=== PATIENT | male | born 1990 | race Caucasian/White ===

== ENCOUNTER 2023-01-11 11:49 | Outpatient (REF) | payer MEDICAID, OTHER, SELFPAY ==
[2023-01-11 13:26] LABS: MANUAL DIFF FLAG NO
[2023-01-11 13:52] LABS: Basophils Absolute Auto 0.1 X10*3/uL (0.0-0.2); Basophils Percent Auto 1.4 % (0-2); Eosinophils Absolute Auto 0.1 X10*3/uL (0.0-0.4); Eosinophils Percent Auto 1.4 % (0-4); Hemoglobin 16.2 g/dl (14.0-18.0); Imm Gran Abs Auto 0.04 X10*3/uL (0.00-0.03); Imm Gran Pct Auto 0.8 % (0.0-0.4); Lymphocytes Absolute Auto 1.5 X10*3/uL (1.2-4.9); Lymphocytes Percent Auto 29.7 % (20-40); Mean Corpuscular HGB Conc 35.2 g/dl (31.0-36.0); Mean Corpuscular Hemoglobin 29.6 pg (27.0-33.0); Mean Corpuscular Volume 84.1 fL (80.0-98.0); Mean Platelet Volume 12.1 fL (9.4-12.4); Monocytes Absolute Auto 0.3 X10*3/uL (0.1-1.2); Monocytes Percent Auto 6.6 % (2-11); Neutrophils Percent Auto 60.1 % (45-73); Platelet Count 217 X10*3/uL (160-400); Red Blood Count 5.47 X10*6/uL (4.60-5.80); Red Cell Distribution Width 12.8 % (11.0-16.0)
[2023-01-11 14:07] LABS: Hemoglobin A1c % > 14.0 %
[2023-01-11 14:32] LABS: Alanine Aminotransferase 10 U/L (0-40); Albumin Level 4.4 g/dL (3.5-5.0); Alkaline Phosphatase 125 U/L (39-117); Anion Gap 25 (12-20); Aspartate Amino Transferase 10 U/L (5-37); Bilirubin Total 0.9 mg/dL (0.0-1.0); Blood Urea Nitrogen 11 mg/dL (9-16); Calcium 9.4 mg/dL (8.4-10.2); Carbon Dioxide 20 mmol/L (22-29); Chloride 95 mmol/L (96-108); Cholesterol 240 mg/dL; Estimated Glomerular Filt Rate > 60; Glucose Random 294 mg/dL (60-115); HDL Cholesterol 45 mg/dL; LDL Cholesterol Calculated 168 mg/dl; Potassium 4.5 mmol/L (3.3-5.1); Sodium 135 mmol/L (135-145); Total Protein 7.2 g/dL (6.5-8.0); Triglycerides 135 mg/dL
[2023-01-11 15:01] LABS: TSH reflex Free T4 1.13 uIU/mL (0.32-4.0); Vitamin D 25-OH Total 18.5 ng/mL (>30)
[2023-01-11 15:03] LABS: Folate 16.3 ng/mL (> or = 4.0); Vitamin B12 826 pg/mL (200-900)
[2023-01-11 16:38] LABS: Creatinine Urine 68.56 mg/dL; Microalbum/Creatinine Ratio Ur 23.3 ug/mg cr
[2023-01-11 17:45] LABS: CT PCR NOT DETECTED (Not Detect.); NG PCR NOT DETECTED (Not Detect.)
[2023-01-12 07:45] LABS: Syphilis Screen Nonreactive (Nonreactive)
[2023-01-12 08:36] LABS: HBS Num1 1.14 mIU/mL (0-7.99); HBc Num1 0.09 S/CO (0.00-0.79); HBsAGNum1 0.33 S/CO (0.00-0.99); HIV AB/AG Nonreactive (Nonreactive); HIV Num 1 0.05 S/CO (0.00-0.99); Hepatitis B Core Antibody Nonreactive (Nonreactive); Hepatitis B Surface Antigen Negative (Negative); ~Hepatitis B Surface Antibody NONREACTIVE (Nonreactive)
[2023-01-12 08:37] LABS: ~Hepatitis C Antibody Nonreactive (Nonreactive)
[2023-01-12 20:19] LABS: C Peptide 0.62 ng/mL (0.80-3.85)
[2023-01-13 23:59] LABS: TS Negative Control Passed; TS Panel A 4; TS Panel B 4; TS Positive Control Passed; TSpotTB Negative (Negative)
[2023-01-14 21:58] LABS: Glutamic acid decarboxylase Ab <5 IU/mL (<5)
[2023-01-20 16:28] LABS: Insulin Auto Antibody <0.4 U/mL (<0.4)
== END 2023-01-11 11:50 | disposition home or self-care (01) ==
LOC: HO.HHCL 11:49
PROVIDERS: Visit Provider Student in an Organized Health Care Education/Training Program
DX: Z00.00 Encounter for general adult medical examination without abnormal findings (principal); Z11.3 Encounter for screening for infections with a predominantly sexual mode of transmission; Z11.4 Encounter for screening for human immunodeficiency virus [HIV]; Z11.1 Encounter for screening for respiratory tuberculosis; E11.65 Type 2 diabetes mellitus with hyperglycemia
CPT/HCPCS: 0353U; 80053; 80061; 82043; 82306; 82607; 82746; 83036; 84443; 84630; 84681; 85025; 86337; 86341; 86481; 86704; 86706; 86780; 86803; 87340; 87389

== ENCOUNTER 2025-04-13 11:41 | Outpatient (REF) | payer MEDICAID, OTHER, SELFPAY ==
[2025-04-13 13:58] LABS: Alanine Aminotransferase 15 U/L (0-40); Albumin Level 4.8 g/dL (3.5-5.0); Alkaline Phosphatase 81 U/L (39-117); Anion Gap 8 (12-20); Aspartate Amino Transferase 23 U/L (5-37); Blood Urea Nitrogen 9 mg/dL (9-16); Calcium 9.1 mg/dL (8.4-10.2); Carbon Dioxide 29 mmol/L (22-29); Chloride 106 mmol/L (96-108); Cholesterol 159 mg/dL (<200); Estimated Glomerular Filt Rate > 60; HDL Cholesterol 61 mg/dL (>40); Potassium 4.0 mmol/L (3.3-5.1); Sodium 139 mmol/L (135-145); Total Protein 7.4 g/dL (6.5-8.0); Triglycerides 52 mg/dL (<150)
[2025-04-13 14:18] LABS: Gamma Glutamyl Transpeptidase 17 U/L (11-51)
[2025-04-13 15:01] LABS: Parathyroid Hormone Intact 63.0 pg/mL (8.7-77.1)
--- OUTSIDE RECORDS SUMMARY | 2025-04-13 15:09 | XMS_ITS | Encounter Summary ---
Author Organization [employer] [facility] Address [address] [facility] 7t [place] [address] Care Team Providers Care Jukebox Checker Name Role Phone Chandrika Borrego KIMO Primary Care Provider [phone] Maura Cho PharmD Unavailable [phone] Encounter Details Date Type Department Care Team (Late st Contact Info) Description 01/12/2023 Orders Only [facility] [address] [place] [address] [phone] Roz Hess MD [address] [place], [place] [phone] Social History Tobacco Use Types Packs/Day Years Used Date Smoking Tobacco: Never Passive Smoke Exposure: Never Smokeless Tobacco: Never Alcohol Use Standard Drinks/Week Comments Yes 0 (1 standard drink = 0.6 oz pur e alcohol) social Depression Answer Date Recorded Patient Health Questionnaire-9 Score 1 01/11/2023 Depression Answer Date Recorded Patient Health Questionnaire-2 Score 1 01/11/2023 Sex and Gender Information Value Date Recorded Sex Assigned at Male 10/31/2022 3:20 PM EDT Legal Sex Male 3:18 PM EDT Gender Identity Male 10/31/2022 3:20 PM EDT Sexual Orientation Straight 01/11/2023 11 :03 AM EDT documented as of this encounter Plan of Treatment Upcoming Encounters Date Type Department Care Team (Late st Contact Info) Description 05/04/2025 9:30 AM EST Medication Management [facility] [address] [place] [phone] Maura Cho, PharmD [address] [place] [address] documented as of this encounter Visit Diagnoses Not on filedocumented in this encounter Additional Health Concerns Assessment Noted Time PHQ-9 Depression Total Score: 1 01/12/20 23 11:01 AM EDT documented as of this encounter Care Teams Jukebox Checker Relationship Specialty Start Date End Date Chandrika Borrego ANP [address] [place] [address] PCP - General Family Medicine 01/11/23 Maura Cho PharmD [address] [place] [address] Pharmacist Pharmacy 02/23/25 documented as of this encounter
--- OUTSIDE RECORDS SUMMARY | 2025-04-13 15:09 | XMS_ITS | Encounter Summary ---
Author Organization [employer] Address [address] [facility] [address] 7t [place] [address] Care Team Providers Care Leak Operator Paraffin Plant Name Role Phone Chandrika Borrego Primary Care Provider [phone] Maura Cho PharmD Unavailable [phone] Encounter Details Date Type Department Care Team ([facility] st Contact Info) Description 04/13/2025 Orders Only [facility] [address] [place], [place] [phone] Chandrika Borrego ANP 230 [place], [place] [phone] Social History Tobacco Use Types Packs/Day Years Used Date Smoking Tobacco: Never Passive Smoke Exposure: Never Smokeless Tobacco: Never Alcohol Use Standard Drinks/Week Comments Not Currently 0 (1 standard drink = 0.6 oz pur e alcohol) social Depression Answer Date Recorded Patient Health Questionnaire-9 Score 10 01/30/2025 Patient Health Questionnaire-9 Score 10 01/30/2025 Last PHQ-9: Questionnaire Data Not on file 0 01/30/2025 Housing Stability Answer Date Recorded What is your housing situation today? I have dimitris liriano 01/07/[address] you li ve. Do you have problems with any of the following? None of the above 01/07/2024 Food Insecurity Answer Date Recorded Within the past 12 months, y ou worried that your food would run out before you got money to buy more: Never True 01/07/2024 Within the past 12 months,th e food you bought just didn't last and you didn't have enough money to get more: Never True Transportation Answer Date Recorded In the past 12 months, has l ack of transportation kept you from medical appts, meetings, work or from getting things needed for daily living? No 01/07/2024 Utilities Answer Date Recorded In the past 12 months, has t he electric, gas, oil or water company threatened to shut off services in your home? No 01/07/2024 Depression Answer Date Recorded Patient Health Questionnaire-2 Score 2 01/30/2025 Internet Access Answer Date Recorded Internet Access Q1 No 02/18/2024 Internet Access Q2 I do not want or need it 07/2023 Sex and Gender Information Value Date Recorded Sex Assigned at Male 10/31/2022 3:20 PM EDT Legal Sex Male 3:18 PM EDT Gender Identity Male 10/31/2022 3:20 PM EDT Sexual Orientation Straight 01/11/2023 11 :03 AM EDT documented as of this encounter Plan of Treatment Upcoming Encounters Date Type Department Care Team (Late st Contact Info) Description 05/04/2025 9:30 AM EST Medication Management [facility] [address] [place] [address] Maura Cho, PharmD 230 [place] [address] documented as of this encounter Procedures Procedure Name Priority Date/Time Associated Diagnosis Comments HEPATIC FUNCTION PANEL Routine 04/13/2025 11:54 AM EDT documented in this encounter Results * Hepatic Function Panel (04/13/2025 11:54 AM EDT) Bilirubin, Direct 0.4 0.0 - 0.5 mg/dL [facility] 04/13/2025 11:5 4 AM EDT 04/13/2025 1:19 PM EDT us Chandrika MALIN LAB BLOOD ORDERABLES Final Resul t [facility] [address] [place] [address] [phone] documented in this encounter Visit Diagnoses Not on filedocumented in this encounter Additional Health Concerns Assessment Noted Time PHQ-9 Depression Total Score: 10 01/30/ 025 9:48 AM EDT documented as of this encounter Care Teams Leak Operator Paraffin Plant Relationship Specialty Start Date End Date Chandrika Borrego ANP 230 [place] [address] PCP - General Family Medicine 01/11/23 Maura Cho PharmD 230 [place] [address] Pharmacist Pharmacy 02/23/25 documented as of this encounter
--- OUTSIDE RECORDS SUMMARY | 2025-04-13 15:09 | XMS_ITS | Clinical Summary ---
Author Organization [facility] Address [address] [address] Phone Care Team Providers Care Senior Accounting Analyst Name Role Phone Pcp, Unknown Primary Care Provider Unavailabl e Allergies No known active allergies Medications metFORMIN (GLUCOPHAGE) 500 MG tablet Take 1 tablet (500 mg total) by mouth 2 (two) times a day with meals. 60 tablet 10/31/2022 Active Social History Tobacco Use Types Packs/Day Years Used Date Smoking Tobacco: Never Assessed Education Answer Date Recorded Are you interested in more education? Not on abiodun e 10/14/2022 Are you concerned about learning? Not on file 10/14/2022 No 10/14/2022 No 10/14/2022 Digital Access Answer Date Recorded No 11/08/2022 No 11/08/2022 Reliable internet access at home? Not on file 11/08/2022 Device with a working camera? Not on file Intimate Partner Violence Answer Date R ecorded Are you denied basic needs s uch as food, clothing, or medical care? No 10/31/2022 In the past 12 months have y ou been in a relationship with a person who hurts, threatens, or tries to control you? No 10/31/2022 Are you denied basic needs s uch as food, clothing, or medical care? No 10/31/2022 In the past 12 months have y ou been in a relationship with a person who hurts, threatens, or tries to control you? No 10/31/2022 Sex and Gender Information Value Date Recorded Sex Assigned at Not on file Legal Sex Male 2:34 PM EDT Gender Identity Not on file Sexual Orientation Not on file Last Filed Vital Signs Vital Sign Reading Time Taken Comments Blood Pressure 121/80 10/31/2022 2:12 PM EDT Pulse 65 10/31/2022 2:12 PM EDT Temperature 36.3 C (97.4 F) 10/31/2022 2:12 PM EDT Respiratory Rate 16 10/31/2022 2:12 PM EDT Oxygen Saturation 99% 10/31/2022 2:12 PM EDT Inhaled Oxygen Concentration - - Weight 90 kg (198 lb 6.6 oz) 10/31/2022 11:31 AM EDT Height 170 cm (5' 6.93 ) 10/31/2022 11:31 AM EDT Body Mass Index 31.14 10/31/2022 11:31 AM EDT Plan of Treatment Upcoming Encounters Date Type Department Care Team (Late st Contact Info) Description 07/17/2025 8:30 AM EST Office [facility] [address] [address] Kishore Jacobson MD [address] [place] [phone] [email or web address] Health Maintenance Due Date Last Done Comments Adult Td,Tdap Booster 1992 DEPRESSION SCREENING 2004 SMOKING Hx and SMOKELESS TOBACCO SCREENING 2005 HEPATITIS C SCREENING 2010 HIV ONE-TIME SCREENING (18-6 5 YEARS) 2010 CREATININE LEVEL 11/01/2023 10/31/2022, 10/02/2022 INFLUENZA VACCINE (#1) 2025 COVID-19 VACCINE ( - 2024-2 6 season) 2025 HEPATITIS A VACCINES Aged Out No long er eligible based on patient's age to complete this topic HIB VACCINES Aged Out No longer eligi ble based on patient's age to complete this topic MENINGOCOCCAL VACCINES (ACWY) Aged Out No longer eligible based on patient's age to complete this topic MENINGOCOCCAL VACCINES (B) Aged Out N o longer eligible based on patient's age to complete this topic PNEUMOCOCCAL VACCINES (0-49 years) Aged Out No longer eligible b ased on patient's age to complete this topic Medical Devices Not on file Procedures Procedure Name Priority Date/Time Associated Diagnosis Comments BASIC METABOLIC PANEL STAT 10/31/2022 11:41 AM EDT from Last 3 Months or Most Recently Relevant to Health Maintenance Results * (ABNORMAL) Basic metabolic panel (10/31/2022 11:41 AM EDT) SODIUM 135 133 - 146 mmol/L [facility] CHLORIDE 94(L) 96 - 108 mmol/L [facility] POTASSIUM 4.6 3.3 - 5.1 mmol/L [facility] CO2 27 21 - 35 mmol/L [facility] BUN 10 6 - 19 mg/dL [facility] CREATININE 0.60 0.5 - 1.5 mg/dL [facility] GLUCOSE 352(H) 70 - 99 mg/dL [facility] CALCIUM 9.9 8.4 - 10.3 mg/dL [facility] EGFR >120 >59 mL/min/1.7 3m2 [facility] Comment:Estimated glomerular filtration rate calculated using the CKD-EPI refit equation. ANION GAP 19 10 - 20 mmol/L [facility] Blood 10/31/2022 11:4 1 AM EDT 10/31/2022 11:45 AM EDT Zac Jeronimo MD LAB BLOOD ORDERABLES Final Re sult [address] [address] from Last 3 Months or Most Recently Relevant to Health Maintenance Insurance [employer] [facility] SAFETY NET FULL [employer] [facility] [facility] NET FULL Member Subscriber Plan / Payer (Ef fective 2022-Present) Name:Julio C Jj Relation to Subscriber:Self Name:Julio C Jj Payer ID:Not on file Group ID:Not on file Type:Medicaid Address: [place] [id number] [employer] [facility] SAF[facility]Y NET FULL LIMITED NET FULL [employer] HEALTH SAFETY NET FULL [employer] SAFETY NET FULL Care Teams Senior Accounting Analyst Relationship Specialty Start Date End Date Pcp, Unknown PCP - General 10/02/22 Additional Source Comments The information contained in this document represents components of the legal health record. It is not the complete legal health record.[facility]
--- OUTSIDE RECORDS SUMMARY | 2025-04-13 15:09 | XMS_ITS | Encounter Summary ---
Author Organization [employer] Address [address] [facility] 7t [place] [address] Care Team Providers Care Hand Bender Name Role Phone Chandrika Borrego Primary Care Provider [phone] Maura Cho PharmD Unavailable [phone] Encounter Details Date Type Department Care Team (Late st Contact Info) Description 01/30/2025 Orders Only [facility] [address] [place], [place] [phone] Rzo Hess MD [address] [place], [place] [phone] Uncontrolled type 2 diabetes mellitus with hyperglycemia (CMS/HCC) (Primary Dx) Social History Tobacco Use Types Packs/Day Years [...] AM EDT documented as of this encounter Functional Status * Over the past 2 weeks, how often have you been bothered by any of the following problems? Question Answer Date of Assessment Author Patient Health Questionnaire -2 Score 2 01/30/2025 9:48 AM EDT Angelic Devine MA * Little interest or pleasure in doing things Answer Date of Assessment Author Not at all 01/30/2025 9:48 AM EDT Angelic Devine MA * Feeling down, depressed, or hopeless Answer Date of Assessment Author More than half the days 01/30/2025 9:48 AM EDT O Angelic rodriguez MA * Trouble falling or staying asleep, or sleeping too much Answer Date of Assessment Author More than half the days 01/30/2025 9:48 AM EDT O Angelic rodriguez MA * Feeling tired or having little energy Answer Date of Assessment Author Nearly every day 01/30/2025 9:48 AM EDT Angelic Devine MA * Poor appetite or overeating Answer Date of Assessment Author Nearly every day 01/30/2025 9:48 AM EDT Angelic Devine MA * Feeling bad about yourself - or that you are a failure or have let yourself or your family down Answer Date of Assessment Author Not at all 01/30/2025 9:48 AM EDT Angelic Devine MA * Trouble concentrating on things, such as reading the newspaper or watching television Answer Date of Assessment Author Not at all 01/30/2025 9:48 AM EDT Angelic Devine MA * Moving or speaking so slowly that other people could have noticed? Or the opposite - being so fidgety or restless that you have been moving around a lot more than usual. Answer Date of Assessment Author Not at all 01/30/2025 9:48 AM EDT Angelic Devine MA * Thoughts that you would be better off or hurting yourself in some way Answer Date of Assessment Author Not at all 01/30/2025 9:48 AM EDT Angelic Devine MA * Patient Health Questionnaire-9 Score Answer Date of Assessment Author 10 01/30/2025 9:48 AM EDT Angelic Devine MA documented as of this encounter Plan of Treatment Upcoming Encounters Date Type Department Care Team (Late st Contact Info) Description 05/04/2025 9:30 AM EST Medication Management [facility] [address] [place] [address] Maura Cho, Miladys 230 [place] [address] documented as of this encounter Visit Diagnoses Diagnosis Uncontrolled type 2 diabetes mellitus with hyperglycemia (HCC)- Primary documented in this encounter Additional Health Concerns Assessment Noted Time PHQ-9 Depression Total Score: 10 025 9:48 AM EDT documented as of this encounter Care Teams Hand Bender Relationship Specialty Start Date End Date Chandrika Borrego ANP [address] [place] [address] PCP - General Family Medicine 01/11/23 Maura Cho PharmD [address] [place] [address] Pharmacist Pharmacy 02/23/25 documented as of this encounter
--- OUTSIDE RECORDS SUMMARY | 2025-04-13 15:09 | XMS_ITS | Encounter Summary ---
Author Organization [employer] Address [address] [facility]t [place] [address] Care Team Providers Care Sample Sewer Name Role Phone Chandrika Borrego Primary Care Provider [phone] Marua Cho PharmD Unavailable [phone] Encounter Details Date Type Department Care Team (Latest Contact Info) Description 04/13/2025 Travel Social History Tobacco Use Types Packs/Day Years [...] Description 05/04/2025 9:30 AM EST Medication Management [facility] [address] [place] [address] Maura Cho, Miladys [address] [place] [address] documented as of this encounter Visit Diagnoses Not on filedocumented in this encounter Additional Health Concerns Assessment Noted Time PHQ-9 Depression Total Score: 10 025 9:48 AM EDT documented as of this encounter Care Teams Sample Sewer Relationship Specialty Start Date End Date Chandrika Borrego ANP [address] [place] [address] PCP - General Family Medicine 01/11/23 Maura Cho PharmD [address] [place] [phone] Pharmacist Pharmacy 02/23/25 documented as of this encounter
--- OUTSIDE RECORDS SUMMARY | 2025-04-13 15:09 | XMS_ITS | Encounter Summary ---
Author Organization [employer] Address [address] [facility] [address] [place] [address] Care Team Providers Care Sight Mounter Name Role Phone Chandrika Borrego Primary Care Provider [phone] Maura Cho PharmD Unavailable [phone] Reason for Visit * Reason Onset Date Comments Appointment Request 10/15/2023 Encounter Details Date Type Department Care Team (Late st Contact Info) Description 10/15/[address] [facility] [address] [place], [place] [phone] Chandrika Borrego ANP [address] [place], [place] [phone] Appointment Request Social History Tobacco Use Types Packs/Day Years Used Date Smoking Tobacco: Never Passive Smoke Exposure: Never Smokeless Tobacco: Never Alcohol Use Standard Drinks/Week Comments Yes 0 (1 standard drink = 0.6 oz pur e alcohol) social Depression Answer Date Recorded Patient Health Questionnaire-9 Score 1 01/11/2023 Housing Stability Answer Date Recorded What is your housing situation today? I have dimitris liriano 04/17/[address] you li ve. Do you have problems with any of the following? None of the above 04/17/2023 Food Insecurity Answer Date Recorded Within the past 12 months, y ou worried that your food would run out before you got money to buy more: Never True 04/17/2023 Within the past 12 months,th e food you bought just didn't last and you didn't have enough money to get more: Never True Transportation Answer Date Recorded In the past 12 months, has l ack of transportation kept you from medical appts, meetings, work or from getting things needed for daily living? No 04/17/2023 Utilities Answer Date Recorded In the past 12 months, has t he electric, gas, oil or water company threatened to shut off services in your home? No 04/17/2023 Depression Answer Date Recorded Patient Health Questionnaire-2 Score 1 01/11/2023 Sex and Gender Information Value Date Recorded Sex Assigned at Male 10/31/2022 3:20 PM EDT Legal Sex Male 3:18 PM EDT Gender Identity Male 10/31/2022 3:20 PM EDT Sexual Orientation Straight 01/11/2023 11 :03 AM EDT documented as of this encounter Miscellaneous Notes * Telephone Encounter - Chad Black - 10/15/2023 11:55 AM EDT Tc from patient requesting a call back to reschedule appt from 07/11 and the patient has Sunday available documented in this encounter Plan of Treatment Upcoming Encounters Date Type Department Care Team (Late st Contact Info) Description 05/04/2025 9:30 AM EST Medication Management [facility] [address] [place] [address] Maura Cho PharmD 230 [place] [address] documented as of this encounter Visit Diagnoses Not on filedocumented in this encounter Additional Health Concerns Assessment Noted Time PHQ-9 Depression Total Score: 1 01/12/20 11:01 AM EDT documented as of this encounter Care Teams Sight Mounter Relationship Specialty Start Date End Date Chandrika Borrego ANP [address] [place], [place] [phone] PCP - General Family Medicine 01/11/23 Maura Cho PharmD [address] [place] [address] Pharmacist Pharmacy 02/23/25 documented as of this encounter
--- OUTSIDE RECORDS SUMMARY | 2025-04-13 15:09 | XMS_ITS | Encounter Summary ---
Author Organization [employer] Address [address] [facility] [address] 7[address] [place] [address] Care Team Providers Care Immunochemist Name Role Phone Chandrika Borrego Primary Care Provider [phone] Maura Cho PharmD Unavailable [phone] Reason for Visit * Reason Onset Date Comments Med Refill 10/15/2023 Encounter Details Date Type Department Care Team (Late st Contact Info) Description 10/15/2023 Telephone [facility] 230 [place], [place] [phone] Chandrika Borrego ANP 230 [place], [place] [phone] Med Refill Social History Tobacco Use Types Packs/Day Years [...] Telephone Encounter - Chad Black - 10/15/2023 11:53 AM EDT TC from pt requesting medication refill. Medications needing refill : metFORMIN (Glucophage) 1000 MG tablet and dulaglutide (Trulicity) 1.5 MG/0.5ML solution pen-injector To be sent to: [facility] - [place], [place] - [address] [place] [address] documented in this encounter Plan of Treatment Upcoming Encounters Date Type Department Care Team ([facility] st Contact Info) Description 05/04/2025 9:30 AM EST Medication Management [facility] [address] [place] [address] Maura Cho PharmD [address] [place] [address] documented as of this encounter Visit Diagnoses Not on filedocumented in this encounter Additional Health Concerns Assessment Noted Time PHQ-9 Depression Total Score: 1 01/12/20 11:01 AM EDT documented as of this encounter Care Teams Immunochemist Relationship Specialty Start Date End Date Chandrika Borrego ANP [address] [place] [phone] PCP - General Family Medicine 01/11/23 Maura Cho PharmD 230 [place] [address] Pharmacist Pharmacy 02/23/25 documented as of this encounter
--- OUTSIDE RECORDS SUMMARY | 2025-04-13 15:09 | XMS_ITS | Clinical Summary ---
Author Organization [employer] Address [address] [facility] [address] [place] [address] Care Team Providers Care Tattoo Technician Name Role Phone Chandrika Borrego Primary Care Provider [phone] Maura Cho PharmD Unavailable [phone] Allergies No known active allergies Medications Alcohol Swabs padsIndications: Type 2 diabetes mellitus with hyperglycemia, without long-term current use of insulin (HCC) 1 each if needed (to clean skin). 100 each 024 Active Continuous Glucose Timekeeping Supervisor (FreeStyle Raad 3 [place]) deviceIndication s:Uncontrolled type 2 diabetes mellitus with hyperglycemia (HCC) 1 each Once per day. Use as directed for CGM 1 each 025 Active Continuous Glucose Sensor (FreeStyle Raad 3 Plus Sensor) miscIndications: Uncontrolled type 2 diabetes mellitus with hyperglycemia (HCC) 1 each every 15 days. Apply 1 every 15 days as directed for CGM 2 each 025 Active glucose blood (FreeStyle Precision Livan Test) test stripIndications :Uncontrolled type 2 diabetes mellitus with hyperglycemia (HCC) Use to test blood sugar 3 times daily in case of CGM failure or extremes of BG 100 each 025 2025 Active Tirzepatide (Mounjaro) 5 MG/0.5ML solution auto-injectorInd ications:Type 2 diabetes mellitus with hyperglycemia, with long-term current use of insulin (HCC) Inject 5 mg under the skin every 7 (seven) days. 2 mL 025 Active glucose (Glutose) 40 % gel oral gelIndications:T ype 2 diabetes mellitus with hyperglycemia, with long-term current use of insulin (HCC) Take 15 g by mouth if needed for low blood sugar. 45 g 3 Active metFORMIN XR (Glucophage-XR) 500 MG 24 hr tabletIndication s:Uncontrolled type 2 diabetes mellitus with hyperglycemia (HCC) Take 2 tab twice daily with meals. Do not crush, chew, or split. 360 tablet 1 Active acetone, urine, test stripIndications :Uncontrolled type 2 diabetes mellitus with hyperglycemia (HCC) Use as directed to check for ketones if needed 25 each 3 Active insulin glargine (Lantus SoloStar) 100 UNIT/ML penIndications:T ype 2 diabetes mellitus with hyperglycemia, with long-term current use of insulin ([facility]) Inject subcutaneously 36 units once daily Active insulin pen needle (B-D ULTRAFINE III SHORT PEN) 31G X 8 mm miscIndications: Type 2 diabetes mellitus with hyperglycemia, with long-term current use of insulin ([facility]) USE DIRECTED WITH INSULIN THREE TIMES DAILY DAILY 100 each 3 Active insulin lispro (HumaLOG KWIKPEN) 100 UNIT/ML injectionIndicat ions:Type 2 diabetes mellitus with hyperglycemia, with long-term current use of insulin ([facility]) Inject subcutaneously twice daily 6 units once daily before lunch and 4 units before dinner. Do not use if skipping meal. Active insulin pen needle (B-D ULTRAFINE III SHORT PEN) 31G X 8 mm miscIndications: Type 2 diabetes mellitus with hyperglycemia, with long-term current use of insulin ([facility]) USE DIRECTED WITH INSULIN TWICE DAILY 100 each 1 025 2024 Discontinued(R eorder (will not trigger notification to Pharmacy)) insulin lispro (HumaLOG KWIKPEN) 100 UNIT/ML injectionIndicat ions:Type 2 diabetes mellitus with hyperglycemia, with long-term current use of insulin ([facility]) Inject subcutaneously twice daily 8 units once daily before lunch and 6 units before dinner. Do not use if skipping meal. 15 mL 1 025 2024 Discontinued(R eorder (will not trigger notification to Pharmacy)) Active Problems Problem Noted Date Diagnosed Date Diabetic cataract of both eyes 01/30/2025 Health care maintenance 01/11/2023 Assessment & Plan (01/11/2023 11:48 AM EDT): -vaccines: covid x1 per pt today Bivalent dose x1,today tdap,today p20 -labs x annual exam today in fasting -pt agreed to have STI testing including HIV to have for baseline ,will do Tb test x uncontrolled DM and came from [facility] mo ago Uncontrolled type 2 diabetes mellitus with hyper glycemia 10/31/2022 Assessment & Plan (06/15/2023 12:29 PM EST): - A1C > 14%, worsening despite intensifying treatment - low health literacy and questionable medication adherence (pharmacist states he has not picked up dulaglutide 1.5 mg, but pt claims that he is using 1.5 mg) - pt has already been referred to endocrinology (refer to DM education as it is prerequisite) - PCP has already screened for STEPHANIE, which was negative - increase basal insulin to 14 units (pt is unlikely to be able to self-titrate) - check the status of CGM which PCP has already ordered - follow up with PCP in 1 mo Assessment & Plan (01/11/2023 11:49 AM EDT): newly dxed DM in 10/2022 w A1c 11.9 Reports father w DM dxed in his 40s and brother dx in his 30s as well -denies relatives to be on insulin Possible DM2 ? Vs latent autoimmune diabetes? -reorder today DM labs and antibodies to r/o STEPHANIE- if positive this can identify if he will need insulin earlier -will change dose of metformin tab to 1000 mg BID to make easier taking less tab a day but same total dose as before -increase Today trulicity to 1.5 mg weekly from 0.75 -advised to bring home glucose readings in fasting daily at next apt -noted he had already prescribed continues glucose monitoring -required PA -I spoke w px today and no answer yet from insurance -I request ELISABETH Elkins to call insurance and check status at # [phone], for now continues using CBG check -states has supplies at home -referred already x ophthalmology -pd to get a call x apt -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 -referred today to diabetic education Encounters Date Type Department Care Team Description 04/13/2025 Orders Only [facility] [place] [address] Chandrika Borrego ANP 04/13/2025 Travel 03/24/2025 Telephone [facility] [place] [address] Chandrika Borrego ANP 03/09/2025 Travel 03/04/2025 Telephone [facility] [place] [address] Chandrika Borrego ANP Appointment Request 03/02/2025 11:30 AM EDT Office Visit [facility] [place] [address] Chandrika Borrego ANP Uncontrolled type 2 diabetes mellitus with hyperglycemia (CMS/HCC) (Primary Dx); Diabetic cataract of both eyes (CMS/HCC); Encounter for immunization; Type 2 diabetes mellitus with hyperglycemia, with long-term current use of insulin (CMS/HCC) 03/02/2025 Travel 02/27/2025 Telephone [facility] [place] [address] Chandrika Borrego ANP chart prep 02/23/2025 Travel 02/17/2025 9:30 AM EDT Clinical Support [facility] [place] [address] Doreen Douglass, DELIO Uncontrolled type 2 diabetes mellitus with hyperglycemia (CMS/HCC) 02/17/2025 Travel 02/09/2025 Telephone [facility] [place] [address] Chandrika Borrego ANP No Show 02/09/2025 Orders Only [facility] [place] [address] Toney Weber MD Uncontrolled type 2 diabetes mellitus with hyperglycemia (CMS/HCC) (Primary Dx) 02/02/2025 Telephone [facility] [place] [address] Toney Weber MD 01/30/2025 9:00 AM EDT Office Visit [facility] [place] [address] Chandrika Borrego ANP Uncontrolled type 2 diabetes mellitus with hyperglycemia (CMS/HCC) (Primary Dx); Nonimmune to hepatitis B virus; Diabetic cataract of both eyes ([facility]); Elevated alkaline phosphatase level; Type 2 diabetes mellitus with hyperglycemia, without long-term current use of insulin (CMS/HCC); Type 2 diabetes mellitus with hyperglycemia, with long-term current use of insulin (CMS/HCC); Encounter for immunization; Nonintractable episodic headache, unspecified headache type; Depression, unspecified depression type 01/30/2025 Orders Only [address] [address] Roz Hess MD Uncontrolled type 2 diabetes mellitus with hyperglycemia ([facility]) (Primary Dx) 01/30/[address] [address] Chandrika Borrego ANP 01/30/[address] [address] Chandrika Borrego ANP Prior Authorization; Appointment Request 01/30/2025 Travel 01/29/[address] [phone] Chandrika Borrego ANP Chart Prep from Last 3 Months Immunizations Immunization Administration Dates Next Due Hep B, adult 01/07/2024 HepB-CpG 03/02/2025,01/30/2025 Influenza, seasonal, injectable, preservative fr ee 04/13/2025 Pfizer Covid-19 Vaccine 12+ 04/13/2025 Pfizer Covid-19 Vaccine 12+ Bivalent 01/11/2023 Pneumococcal Conjugate PCV 20 01/11/2023 Tdap 01/11/2023 Family History Medical History Relation Name Comments DM at 30 y of age Brother DM2 dxed 40 y of age Father breast cancer at her 54 y Mother Relation Name Status Comments Brother Father Mother Social History Tobacco Use Types Packs/Day Years Used Date Smoking Tobacco: Never Passive Smoke Exposure: Never Smokeless Tobacco: Never Tobacco Cessation:Counseling Given: Not Answered Alcohol Use Standard Drinks/Week Comments Not Currently [...] Orientation Straight 01/11/2023 11 :03 AM EDT Last Filed Vital Signs Vital Sign Reading Time Taken Comments Blood Pressure 110/78 04/13/2025 11:32 AM EDT Pulse 97 04/13/2025 11:32 AM EDT Temperature 36.1 C (97 F) 03/02/2025 11:54 AM EDT Respiratory Rate 20 03/02/2025 11:54 AM EDT Oxygen Saturation 98% 01/07/2024 11:25 AM EDT Inhaled Oxygen Concentration - - Weight 66.7 kg (147 lb 2 oz) 03/02/2025 11:54 AM EDT Height 161.3 cm (5' 3.5 ) 03/02/2025 11:54 AM ED T Body Mass Index 25.65 03/02/2025 11:54 AM EDT Plan of Treatment Upcoming Encounters Date Type Department Care Team (Late st Contact Info) Description 05/04/2025 9:30 AM EST Medication Management [facility] [address] [place] [address] Maura Cho, PharmD [address] [place] [address] Health Maintenance Due Date Last Done Comments Disability Screening 1992 Diabetes: Foot Exam 2002 Family Planning (PISQ) 09/24/2007 HPV Vaccines (1 - Male 3-dose series) 09/24/2007 Diabetes: Urine Protein Screening 01/12/2024 04/13/2025, 01/11/2023 Lipid Panel 01/12/2024 04/13/2025, 01/11/2023 SDOH Screening 01/06/2025 01/07/2024 Diabetes: Hemoglobin A1C 06/01/2025 025, 01/30/2025, 01/07/2024, Additional history exists Depression Monitoring 08/02/2025 01/30/2025, 025 Alcohol/Substance Use Screening 03/02/2026 03/02/2025 Tobacco Screening 03/02/2026 03/02/2025 Eye Exam 12/29/2026 12/29/2024, 12/16, 12/29/2024, Additional history exists DTaP/Tdap/Td Vaccines (2 - Td or Tdap) 01/11/2033 01/11/2023 Zoster Vaccines (1 of 2) 2042 RSV Patients and Patients Aged 60 years or older (1 - 1-dose 75+ series) 09/24/2067 HIV Screening Completed 01/11/2023 Hepatitis C Screening Completed 01/11/2023 Pneumococcal Vaccine: Pediatrics (0 to 5 Years) and At-Risk Patients (6 to 49) Years Completed 01/11/2023 Hepatitis B Vaccines Completed 03/02/2025, 01/30/2025, 01/07/2024 COVID-19 Vaccine Completed 04/13/2025, 01/11/2023 Influenza Vaccine Completed 04/13/2025 HIB Vaccines Aged Out No longer eligi ble based on patient's age to complete this topic Hepatitis A Vaccines Aged Out No long er eligible based on patient's age to complete this topic IPV Vaccines Aged Out No longer eligi ble based on patient's age to complete this topic Meningococcal B Vaccine Aged Out No l onger eligible based on patient's age to complete this topic Meningococcal Vaccine Aged Out No mia alea eligible based on patient's age to complete this topic RSV under 20 months Aged Out No longe r eligible based on patient's age to complete this topic Rotavirus Vaccines Aged Out No longer eligible based on patient's age to complete this topic Procedures Procedure Name Priority Date/Time Associated Diagnosis Comments HEPATIC FUNCTION PANEL Routine 04/13/2025 11:54 AM EDT PTH, INTACT WITHOUT CALCIUM Routine 04/13/2025 11:54 AM EDT Elevated alkaline phosphatase level VITAMIN D,25-OH,TOTAL,IA Routine 04/13/2025 11:54 AM EDT Elevated alkaline phosphatase level GGT Routine 04/13/2025 11:54 AM EDT Elevated alkaline phosphatase level ALBUMIN, RANDOM URINE W/CREATININE Routine 04/13/2025 11:54 AM EDT Uncontrolled type 2 diabetes mellitus with hyperglycemia (HCC) COMPREHENSIVE METABOLIC PANEL Routine 04/13/2025 11:54 AM EDT Uncontrolled type 2 diabetes mellitus with hyperglycemia (HCC) LIPID PANEL, STANDARD Routine 04/13/2025 11:54 AM EDT Uncontrolled type 2 diabetes mellitus with hyperglycemia (HCC) POCT GLYCATED HEMOGLOBIN, TOTAL Routine 03/02/2025 11:55 AM EDT Uncontrolled type 2 diabetes mellitus with hyperglycemia (CMS/HCC) POCT GLUCOSE Routine 03/02/2025 11:55 AM EDT Uncontrolled type 2 diabetes mellitus with hyperglycemia (CMS/HCC) POCT GLUCOSE Routine 02/23/2025 9:40 AM EDT Type 2 diabetes mellitus with hyperglycemia, with long-term current use of insulin (CMS/HCC) POCT GLYCATED HEMOGLOBIN, TOTAL Routine 01/30/2025 9:36 AM EDT Uncontrolled type 2 diabetes mellitus with hyperglycemia (CMS/HCC) POCT GLUCOSE Routine 01/30/2025 9:35 AM EDT Uncontrolled type 2 diabetes mellitus with hyperglycemia (CMS/HCC) HEPATITIS C ANTIBODY REFLEX Routine 01/11/2023 12:02 PM EDT HIV ANTIBODY/ANTIGEN ([place] [facility]) Routine 01/11/2023 12:02 PM EDT from Last 3 Months or Most Recently Relevant to Health Maintenance Results * (ABNORMAL) Vitamin D, 25-Hydroxy, Total, Immunoassay (04/13/2025 11:54 AM EDT) [facility] Vitamin D 25-OH Total 26.5(L) >30 ng/mL [facility] Comment: Health Based Reference Values*< 20 ng/mL Kouoimehm04-29 ng/mL Insufficient> 30 ng/mL Sufficient*John RANDALL. N Engl J Med. 2007;357:266-280There is no well-established upper level of normal vitamin Dlevels. Some laboratories use 50 ng/mL as an upper limit ofnormal. However, toxicity is patient-dependent and may occurat any level. Careful correlation with the patient'spresentation is necessary and, if there is concern forvitamin D toxicity, treatment should be consideredirrespective of the serum level.Care must be taken in interpreting Vitamin D results fromdifferent laboratories and methodologies. Published datademonstrated that results from patients undergoinghemodialysis may show a negative bias when tested withvarious automated 25-OH vitamin D assays when compared toLC-MS/MS.When testing samples from patients whose predominant form ofVitamin D is Vitamin D2, such as patients receiving VitaminD2 supplementation, results that are subtherapeutic shouldbe confirmed with another method such as LC-MS/MS. Blood Venous blood specimen / Unknown 04/13/2025 11:54 AM EDT 04/13/2025 1:19 PM EDT Chandrika Borrego ANP LAB BLOOD ORDERABLES Final Resul t Performing Organization Address [facility] de Phone Number [facility] [address] [place] [phone] * Albumin, Random Urine W/Creatinine (04/13/2025 11:54 AM EDT) Creatinine, Urine 44.64 mg/dL [facility] Microalbumin Urine <5.0 mg/L [facility] Microalbum Creatinine Ratio Ur TNP <30 ug/mg cr [facility] Comment:Unable to calculate albumin/creatinine ratio due to lowmicroalbumin or creatinine result. Urine (Urine, Random) 04/13/2025 11:54 AM EDT 04/13/2025 1:00 PM EDT Chandrika Borrego ANP LAB URINE ORDERABLES Final Resul t Performing Organization Address [facility] de Phone Number [facility] [address] [place] [phone] * PTH, Intact Without Calcium (04/13/2025 11:54 AM EDT) Parathyroid Hormone, Intact 63.0 8.7 - 77.1 pg/mL [facility] Blood Venous blood specimen / Unknown 04/13/2025 11:54 AM EDT 04/13/2025 1:19 PM EDT Chandrika Borrego ANP LAB BLOOD ORDERABLES Final Resul t Performing Organization Address [facility] de Phone Number [facility] [address] [place] [phone] * Gamma Glutamyl Transferase (GGT) (04/13/2025 11:54 AM EDT) Gamma Glutamyl Transpeptidase 17 11 - 51 U/L [facility] Blood Venous blood specimen / Unknown 04/13/2025 11:54 AM EDT 04/13/2025 1:19 PM EDT Chandrika Borrego ANP LAB BLOOD ORDERABLES Final Resul t Performing Organization Address City/[facility]/ZIP Co de Phone Number [facility] [address] [place] [phone] * Hepatic Function Panel (04/13/2025 11:54 AM EDT) Bilirubin, Direct 0.4 0.0 - 0.5 mg/dL [facility] 04/13/2025 11:5 4 AM EDT 04/13/2025 1:19 PM EDT Chandrika Borrego ANP LAB BLOOD ORDERABLES Final Resul t Performing Organization Address [facility] Co de Phone Number [facility] [address] [place] [phone] * Lipid Panel, Standard (04/13/2025 11:54 AM EDT) Triglycerides 52 <150 mg/dL [facility] Comment:Desirable Triglyceri de: less than 150 mg/dLBorderline High Triglyceride 150-199 mg/dLHigh Triglyceride: 200-499 mg/dLVery High Triglyceride: greater than or equal to 5OO mg/dL Cholesterol 159 <200 mg/dL [facility] Comment:Desirable Cholestero l: less than 200 mg/dLBorderline High Cholesterol: 200-239 mg/dLHigh Cholesterol: greater than 239 mg/dL LDL Cholesterol Calculated 88 <100 mg/dL [facility] Comment:Desirable LDL: less than 100 mg/dLNear Optimal/Above Optimal LDL: 110- 129 mg/dLBorderline High LDL: 130-159 mg/dLHigh LDL: 160-189 mg/dLVery High LDL: greater than or equal to 190 mg/dL HDL Cholesterol 61 >40 mg/dL [facility] Comment:Desirable HDL: great er than 40 mg/dL Note: This HDL assay may give artificially low results in patients with liver disease. Blood Venous blood specimen / Unknown 04/13/2025 11:54 AM EDT 04/13/2025 1:19 PM EDT Chandrika Borrego ANP LAB BLOOD ORDERABLES Final Resul t [facility] [address] [place] [phone] * (ABNORMAL) Comprehensive Metabolic Panel (04/13/2025 11:54 AM EDT) Sodium 139 135 - 145 mmol/L [facility] Potassium 4.0 3.3 - 5.1 mmol/L [facility] Chloride 106 96 - 108 mmol/L [facility] Carbon Dioxide 29 22 - 29 mmol/L [facility] Anion Gap 8(L) 12 - 20 [facility] Urea Nitrogen (BUN) 9 9 - 16 mg/dL [facility] Creatinine, Serum 0.62 0.5 - 1.4 mg/dL [facility] Estimated Glomerular Filt Rate >60 [facility] Comment:Chronic Kidney Disea se: Estimated GFR < 60 mL/min/1.29s1Nrajcg Kidney Disease: Estimated GFR < 15 mL/min/1.73m2 Glucose 89 60 - 115 mg/dL [facility] Calcium 9.1 8.4 - 10.2 mg/dL [facility] Bilirubin, Total 1.2(H) 0.0 - 1.0 mg/dL [facility] Aspartate Amino Transferase 23 5 - 37 U/L [facility] Alanine Aminotransferase 15 0 - 40 U/L [facility] Total Protein 7.4 6.5 - 8.0 g/dL [facility] Albumin Level 4.8 3.5 - 5.0 g/dL [facility] Alkaline Phosphatase 81 39 - 117 U/L [facility] Blood Venous blood specimen / Unknown 04/13/2025 11:54 AM EDT 04/13/2025 1:19 PM EDT Chandrika Borrego [facility] LAB BLOOD ORDERABLES Final Resul t [facility] [address] [place] [phone] * (ABNORMAL) POCT Hgb A1c (03/02/2025 11:55 AM EDT) Only the most recent of2 resultswithin the time period is included. Hemoglobin A1C 14.0(A) 4.0 - 5.7 % QC Media Lot # [id number] Lot# Expiration Date [id number] Blood 03/02/2025 11:5 5 AM EDT Chandrika Borrego ANP POINT OF CARE TEST ENTER/EDIT OR DERABLES Final Result * (ABNORMAL) POCT Glucose (03/02/2025 11:55 AM EDT) Only the most recent of3 resultswithin the time period is included. Glucose Blood, POC 352(A) 60 - 200 mg/dL QC Media Lot # [id number] Lot# Expiration Date [id number] Blood Capillary blood specimen / Unknown 03/02/2025 11:55 AM EDT Chandrika Borrego ANP POINT OF CARE TEST ENTER/EDIT OR DERABLES Final Result * Hepatitis C Antibody Reflex (01/11/2023 12:02 PM EDT) Hepatitis C Antibody Nonreactive Nonreactive [facility] Comment:Antibodies to HCV no t detected; does not exclude early acuteHCV infection. 01/11/2023 12:0 2 PM EDT 01/11/2023 1:21 PM EDT Roz Longo MD LAB BLOOD ORDERAB LES Final Result [facility] [address] [place] [phone] * HIV Ab/Ag ([facility]) (01/11/2023 12:02 PM EDT) HIV AB/AG Nonreactive Nonreactive [facility] Comment:HIV-1 p24 Ag and/or HIV-1/HIV-2 Ab not detected.A test result that is nonreactive does not exclude thepossibility of exposure to or infection with HIV-1 and/orHIV-2. Nonreactive results in this assay for individualswith prior exposure to HIV-1 and/or HIV-2 may be due toantigen and antibody levels that are below the limit ofdetection of this assay.The Ge Scanning Supervisor HIV Ag/Ab Combo assay result andsupplemental assay results should be interpreted inconjunction with the patient's clinical presentation,history and other laboratory results. If the results areinconsistent with clinical evidence, additional testing issuggested to confirm the result. 01/11/2023 12:0 2 PM EDT 01/11/2023 1:21 PM EDT us Roz Longo MD LAB BLOOD ORDERAB LES Final Result [facility] [address] [place] [phone] from Last 3 Months or Most Recently Relevant to Health Maintenance Insurance [employer] [facility] [employer] Care Teams Tattoo Technician Relationship Specialty Start Date End Date Chandrika Borrego ANP [address] [place] [phone] PCP - General Family Medicine 01/11/23 Maura Cho, BoubacarD [address] [place] [phone] Pharmacist Pharmacy 02/23/25
== END 2025-04-13 11:42 | disposition home or self-care (01) ==
LOC: HO.HHCL 11:41
PROVIDERS: PCP Nurse Practitioner Primary Care; Visit Provider Nurse Practitioner Primary Care
DX: E11.65 Type 2 diabetes mellitus with hyperglycemia (principal); R74.8 Abnormal levels of other serum enzymes; Z79.4 Long term (current) use of insulin
CPT/HCPCS: 36415; 80053; 80061; 82248; 82306; 82570; 82977; 83970